=== PATIENT | female | born 1990 | race Caucasian/White ===

== ENCOUNTER 2018-04-13 11:24 | Outpatient (CLI) | payer BC | END 2018-04-13 11:25 | disposition home or self-care (01) | LOC: DTY/OP 11:24 | PROVIDERS: ATTEND Surgery | DX: E66.01 Morbid (severe) obesity due to excess calories (principal) | CPT/HCPCS: 97802 ==

== ENCOUNTER 2018-07-13 13:30 | Inpatient (IN) | payer BC ==
[2018-07-19] MEDS ORDERED: Levofloxacin 500 mg/D5W 100 ml Premix Bag ONE (06:26)
[2018-07-19] MEDS ORDERED: Scopolamine 1.5 mg/72 hour Patch ONE (06:26)
[2018-07-19] MEDS ORDERED: Bupivacaine/Epinephrine 0.25% 30 ML VIAL ONE (06:57)
[2018-07-19] MEDS ORDERED: Midazolam HCl 2 mg/2 ml Vial ONE (06:58)
[2018-07-19] MEDS ORDERED: HYDROmorphone 2 MG/ML VIAL ONE ×2 (07:03→09:20)
[2018-07-19] MEDS ORDERED: Fentanyl 100 MCG/2 ML VIAL ONE ×2 (07:03→12:02)
[2018-07-19] MEDS ORDERED: Promethazine HCl 25 MG/ML VIAL ONE (07:04)
[2018-07-19] MEDS ORDERED: Heparin 5,000 UNITS/ML VIAL ONE (07:17)
[2018-07-19] MEDS ORDERED: Hydrocodone-Acetamin 15 ML UDCUP PO PRN (08:42)
[2018-07-19] MEDS ORDERED: hydrALAZINE 20 MG/ML VIAL SLOW IVP PRN (08:42)
[2018-07-19] MEDS ORDERED: Dextrose 50% Abboject 50 ML SYRINGE SLOW IVP PRN (08:42)
[2018-07-19] MEDS ORDERED: Promethazine HCl 25 MG/ML VIAL IM PRN ×3 (08:42→10:31)
[2018-07-19] MEDS ORDERED: Dextrose 5% in Water 1,000 ML IV PRN (08:42)
[2018-07-19] MEDS ORDERED: diphenhydrAMINE 50 MG/ML VIAL IVP PRN ×2 (08:42→10:31)
[2018-07-19] MEDS ORDERED: Ondansetron HCl/PF 4 MG/2 ML Vial IVP PRN ×2 (08:42→08:51)
[2018-07-19] MEDS ORDERED: Promethazine HCl 25 MG/ML VIAL SLOW IVP PRN (08:51)
[2018-07-19] MEDS ORDERED: HYDROmorphone 2 MG/ML VIAL SLOW IVP PRN (08:51)
--- NOTE | 2018-07-19 08:58 | OP ---
PREOPERATIVE DIAGNOSIS: Morbid obesity. SURGEON: Darien Cherry M.D. PROCEDURE PERFORMED: Laparoscopic sleeve gastrectomy, esophagogastroscopy. INDICATIONS: This is a 27-year-old female, morbidly obese, who has attempted multiple weight loss pr ograms without success. FINDINGS: A 38 [place] bougie used. PROCEDURE IN DETAIL: After informed consent was obtained, the patient was taken to the operating devon m and given general endotracheal anesthesia placed in the supine position. The abdomen was prepped a nd draped in the usual fashion. Local anesthesia infiltrated subcutaneously and deep. A 12 mm incis ion was performed approximately 8 inches below the xiphoid slightly to the left. Veress needle inser néstor. Drop test performed. Pneumoperitoneum was created to a volume of 2 liters of carbon dioxide. Utilizing a bladeless 12 mm trocar and 0 degree laparoscope, direct visual entry in the abdominal cav ity was performed. Pneumoperitoneum was created to a pressure of 15 mmHg. The patient placed in a s teep reverse Trendelenburg position. Jolene liver retractor inserted. Left lobe of liver retract ed superiorly. Pylorus identified. A 12 mm port placed on the right beneath it and two 12s placed l eft subcostal. The omentum was taken off the greater curvature utilizing the LigaSure. Short gastri cs divided with LigaSure and the left crura defined with LigaSure. A 38-[place] bougie inserted, dire cted into the antrum. The linear 60 mm green load stapler used to divide the antrum to the bougie, g old load along the bougie and a series of blues through the angle of His. Intraoperative endoscopy w as performed. The video endoscope inserted under direct vision. Staple line inspected. There was n o bleeding. Staple line then tested by inflating the new stomach with pressurized air under water. There was no air leak. Stomach decompressed. Scope removed. The remnant stomach removed from the a bdomen through the left lateral port site. The fascia closed with 0 Vicryl suture and the GraNee nee dle. Trocars and retractors removed. Skin closed with interrupted 4-0 Rapide. Steri-Strips applied . Sterile bandage applied. The patient tolerated the procedure well and transferred to recovery in good condition. Sponge and needle count verified correct x2.
[2018-07-19] MEDS ORDERED: Enoxaparin Sodium 40 MG/0.4 ML SYRINGE SC SCH (09:00)
[2018-07-19] MEDS ORDERED: diphenhydrAMINE 25 MG CAP PO PRN (10:31)
[2018-07-19] MEDS ORDERED: Naloxone HCl 0.4 mg/ml Vial IV PRN (10:31)
[2018-07-19] MEDS ORDERED: Zolpidem Tartrate 5 MG TAB PO PRN (10:31)
[2018-07-19] MEDS ORDERED: diphenhydrAMINE 50 MG/ML VIAL IM PRN (10:31)
[2018-07-19] MEDS ORDERED: HYDROmorphone 10 mg/100 ml CADD IVPB PRN (10:31)
[2018-07-19] MEDS ORDERED: Communication Order-Pharmacy FS SCH (10:45)
[2018-07-19] MEDS: D5 1/2 NS w/20 mEq KCL 1,000 ML IV SCH ×2 (13:48→18:58)
[2018-07-19] MEDS: Pantoprazole 40 MG VIAL IVP SCH (14:56)
[2018-07-19 16:49] VITALS: BMI 59.2
[2018-07-19] MEDS: Ondansetron HCl/PF 4 MG/2 ML Vial IVP PRN (19:23)
[2018-07-20] MEDS: D5 1/2 NS w/20 mEq KCL 1,000 ML IV SCH ×2 (01:25→08:44)
[2018-07-20 06:03] LABS: #Lymphocytes 1.8 thou/uL (1.20-3.40); #Neutrophils 9.7 thou/uL (1.40-6.50); %Eosinophils 0.1 % (0.0-10.0); %Lymphocytes 14.3 % (21.0-51.0); %Monocytes 7.7 % (0.0-10.0); %Neutrophils 77.9 % (42.0-75.0); Hemoglobin 11.6 g/dL (12.0-16.0); Mean Corpuscular HGB CONC 32.5 g/dL (32.0-36.0); Mean Corpuscular Hemoglobin 27.7 pg (27.0-31.0); Mean Corpuscular Volume 85.2 fL (78.0-98.0); Mean Platelet Volume 8.3 fL (7.4-10.4); Platelet Count 270 thou/uL (130-400); RBC Distribution Width 13.2 % (11.5-14.5); Red Blood Cell (RBC) Count 4.17 mill/uL (4.20-5.40); White Blood Cell (WBC) Count 12.4 thou/uL (4.8-10.8)
[2018-07-20 06:14] LABS: Anion Gap 11 mmol/L (10-20); BUN (Urea Nitrogen) 9 mg/dL (7.0-18.7); Calc. Creatinine Clearance 328 mL/min (70-130); Calcium 8.5 mg/dL (7.8-10.44); Carbon Dioxide 25 mmol/L (22-29); Chloride 105 mmol/L (98-107); Estimated GFR-MDRD Greater than 90; Glucose 120 mg/dL (70-105); Potassium 3.5 mmol/L (3.5-5.1); Sodium 137 mmol/L (136-145)
[2018-07-20 08:33] VITALS: TEMP 97.9
[2018-07-20] MEDS: Pantoprazole 40 MG VIAL IVP SCH (08:44)
[2018-07-20] MEDS: Ondansetron HCl/PF 4 MG/2 ML Vial IVP PRN (08:44)
[2018-07-20] MEDS ORDERED: Enoxaparin Sodium 40 MG/0.4 ML SYRINGE SC SCH (09:00)
[2018-07-20] MEDS ORDERED: Hydrocodone-Acetamin 15 ML UDCUP PO PRN (10:17)
--- NOTE | 2018-07-20 10:59 | RAD ---
MODIFIED UPPER GI: INDICATIONS: Status post gastric sleeve procedure. CONTRAST: Oral Gastrografin, 15 mL. FLUOROSCOPIC TIME: 0.4 minutes. TOTAL EXPOSURE: 578.6 mGy per m2. FINDINGS: There is post procedural change of a gastric sleeve procedure. There is no evidence of leak or signi ficant obstruction. Contrast is seen flowing into the duodenum without difficulty. IMPRESSION: No evidence of leak or obstruction following gastric sleeve procedure. POS: TRACY
[2018-07-20 11:37] VITALS: BP 112/71
--- NOTE | 2018-07-20 17:44 | DIS ---
DISCHARGE DIAGNOSIS: Morbid obesity. PROCEDURES DURING ADMISSION: Laparoscopic sleeve gastrectomy, esophagogastroscopy, postoperative Gas trografin swallow. HOSPITAL COURSE: The patient was admitted, taken to the operating room where she underwent a sleeve gastrectomy. Postoperatively, she has done well. Her swallow study was fine. She is tolerating liq uids well. She is discharged home on hydrocodone and Zofran. She will follow up with me in 2 weeks.
== END 2018-07-20 14:50 | disposition home or self-care (01) | DRG 621 ==
LOC: SURG A 07-19 05:28 → SJJU 07-19 12:56
PROVIDERS: ADMIT Surgery; ATTEND Surgery
PROC: 0DB64Z3 Excision of Stomach, Percutaneous Endoscopic Approach, Vertical (ICD-10-PCS; principal; 2018-07-19)
DX: E66.01 Morbid (severe) obesity due to excess calories (principal); Z68.43 Body mass index [BMI] 50.0-59.9, adult; Z88.0 Allergy status to penicillin
CPT/HCPCS: 36415; 74241; 80048; 85025; 88307; 88312; 94760; C9113; J1170; J1644; J1650; J1956; J2250; J2405; J2550; J3010

== ENCOUNTER 2018-10-04 14:51 | Outpatient (CLI) | payer BC ==
[2018-10-04 16:19] LABS: #Basophils 0.1 thou/uL (0.0-0.2); #Eosinphils 0.1 thou/uL (0.0-0.7); #Lymphocytes 2.2 thou/uL (1.20-3.40); #Monocytes 0.6 thou/uL (0.11-0.59); #Neutrophils 8.4 thou/uL (1.40-6.50); %Basophils 0.7 % (0.0-1.0); %Eosinophils 0.7 % (0.0-10.0); %Lymphocytes 19.5 % (21.0-51.0); Mean Corpuscular HGB CONC 32.3 g/dL (32.0-36.0); Mean Corpuscular Hemoglobin 29.4 pg (27.0-31.0); Mean Platelet Volume 9.1 fL (7.4-10.4); Platelet Count 282 thou/uL (130-400); RBC Distribution Width 14.2 % (11.5-14.5); Red Blood Cell (RBC) Count 5.11 mill/uL (4.20-5.40); White Blood Cell (WBC) Count 11.3 thou/uL (4.8-10.8)
[2018-10-04 16:39] LABS: ALT (SGPT) 34 U/L (8-55); AST (SGOT) 19 U/L (5-34); Albumin 4.6 g/dL (3.5-5.0); Alkaline Phosphatase 83 U/L (40-150); Anion Gap 13 mmol/L (10-20); BUN (Urea Nitrogen) 25 mg/dL (7.0-18.7); Bilirubin, Direct 0.2 mg/dL (0.1-0.3); Bilirubin, Total 0.4 mg/dL (0.2-1.2); Calc. Creatinine Clearance 0 mL/min (70-130); Calcium 9.7 mg/dL (7.8-10.44); Carbon Dioxide 22 mmol/L (22-29); Cardiac Risk 3.4 (Less than 4.5); Chloride 109 mmol/L (98-107); Cholesterol 164 mg/dl (< 200 Desired); Estimated GFR-MDRD Greater than 90; Globulin 3.4 g/dL (2.4-3.5); Glucose 82 mg/dL (70-105); HDL Cholesterol 48 mg/dL (>60 Neg Risk); LDL Cholesterol, Calculated 99 mg/dL; Potassium 3.7 mmol/L (3.5-5.1); Sodium 140 mmol/L (136-145); Triglycerides 85 mg/dL (Less than 150)
[2018-10-04 16:49] LABS: BHCG - Serum Negative (NEGATIVE); Pregs Control Background? CLEAR/WHITE (CLR/WHITE); Pregs Control Bar Appear? YES (CONTROL BAR)
[2018-10-04 17:36] LABS: Folate (Folic Acid) 16.2 ng/mL (7.0-31.4)
== END 2018-10-04 14:52 | disposition home or self-care (01) ==
LOC: LABBT 14:51
PROVIDERS: ATTEND Surgery
DX: Z01.812 Encounter for preprocedural laboratory examination (principal); K43.9 Ventral hernia without obstruction or gangrene
CPT/HCPCS: 80053; 80061; 82248; 82306; 82607; 82746; 84425; 84443; 84703; 85025

== ENCOUNTER 2018-10-11 10:19 | Inpatient (IN) | payer BC ==
[2018-10-11] MEDS ORDERED: Midazolam HCl 2 mg/2 ml Vial ONE (11:37)
[2018-10-11] MEDS ORDERED: Fentanyl 100 MCG/2 ML VIAL ONE ×2 (11:37→13:36)
[2018-10-11] MEDS ORDERED: Famotidine/PF 20 mg/2ml Vial ONE (11:37)
[2018-10-11] MEDS ORDERED: Bupivacaine/Epinephrine 0.25% 30 ML VIAL ONE (11:39)
[2018-10-11] MEDS ORDERED: CEFAZOLIN 2 GM/50 ML BAG ONE (11:44)
[2018-10-11] MEDS ORDERED: Levofloxacin 500 mg/D5W 100 ml Premix Bag ONE (11:48)
[2018-10-11] MEDS ORDERED: Ondansetron PF 4 MG/2 ML Vial IVP PRN (13:26)
[2018-10-11] MEDS ORDERED: Promethazine HCl 25 MG/ML VIAL IM PRN (13:26)
[2018-10-11] MEDS ORDERED: Dextrose 5% in Water 1,000 ML IV PRN (13:26)
[2018-10-11] MEDS ORDERED: hydrALAZINE 20 MG/ML VIAL SLOW IVP PRN (13:26)
[2018-10-11] MEDS ORDERED: Dextrose 50% Abboject 50 ML SYRINGE SLOW IVP PRN (13:26)
[2018-10-11] MEDS ORDERED: HYDROcodone/Acetaminophen 10/325 mg Tablet PO PRN (13:26)
--- NOTE | 2018-10-11 13:47 | OP ---
PREOPERATIVE DIAGNOSIS: Ventral hernia. SURGEON: Darien Cherry M.D. PROCEDURE PERFORMED: Laparoscopic ventral hernia repair with mesh. INDICATIONS: A 28-year-old female with a painful bulge just above the umbilicus. FINDINGS: She had an epigastric hernia with a small defect containing preperitoneal fat. PROCEDURE IN DETAIL: After informed consent was obtained, the patient was taken to the operating devon m and given general endotracheal anesthesia. She was placed in the supine position. Her abdomen, fl anks were prepped and draped in usual fashion. Local anesthesia infiltrated subcutaneously and deep and a 12 mm incision was performed right flank. Veress needle inserted. Drop test performed. Pneum operitoneum was created to a volume of 2 liters of carbon dioxide. Utilizing a bladeless 12 mm troca r and 0 degree laparoscope, direct visual entry in the abdominal cavity was performed. Pneumoperiton eum was created to a pressure of 15 mmHg. Under direct vision, two 5-mm ports were placed in right l ateral abdomen. The abdominal wall was inspected. I did not see an obvious defect. Now, there was quite a bit of preperitoneal adipose as she is morbidly obese, in that midline. I did take down some of the falciform ligament to facilitate inspection. Then the peritoneum was opened and this preperi toneal adipose was dissected off the anterior abdominal wall. There was a small less than 1 cm defec t that was just above the umbilicus. I was able to remove adipose tissue from this area from her sub cutaneous tissue. The defect was very small, probably about 0.5 mm in diameter. After the area comp letely devoid of adipose, a mesh repair was performed. The abdominal pressure was decreased to 12 mm Hg. The 11 cm round [id number] Proceed mesh was fashioned with 0 Ethibond in 4 equal quadrants. It was rolled and inserted intra-abdominally after being hydrated. Then, it was unrolled intraabdominally a nd using the GraNee needle, each of the sutures was individually grasped to position the mesh optimal ly to cover the defect. These were then secured down and then the mesh was further secured to the ab dominal wall with the SecureStrap Tacker. Again, this was with abdominal pressure at 12. Hemostasis assured. A retrieval bag was inserted. The adipose tissue that was removed was placed in the bag a nd removed from the abdomen in the bag. Hemostasis was assured. Trocars and retractors removed. Th e fascia was closed with 0 Vicryl suture and the GraNee needle. Skin was then closed with interrupte d 4-0 Rapide and Dermabond applied. The patient tolerated the procedure well and was transferred to recovery in good condition. Sponge and needle count verified correct x2.
[2018-10-11] MEDS ORDERED: Ketorolac Tromethamine 30 MG/ML VIAL ONE (14:58)
[2018-10-11] MEDS ORDERED: Dexamethasone 20 MG/5 ML VIAL ONE (14:58)
[2018-10-11] MEDS ORDERED: PROPOFOL 200 MG/20 ML VIAL ONE (14:58)
[2018-10-11] MEDS ORDERED: Metoclopramide HCl 10 MG/2 ML VIAL ONE (14:58)
[2018-10-11] MEDS ORDERED: Ondansetron PF 4 MG/2 ML Vial ONE (14:58)
[2018-10-11] MEDS ORDERED: Lidocaine 1% PF 5 ML VIAL ONE (14:58)
[2018-10-11] MEDS ORDERED: Glycopyrrolate 0.2 MG/ML 5 ML SYRINGE ONE (14:58)
[2018-10-11 15:11] VITALS: BMI 48.4
[2018-10-11] MEDS: D5 1/2 NS w/20 mEq KCL 1,000 ML IV SCH ×2 (16:27→23:13)
[2018-10-11] MEDS: Ketorolac Tromethamine 30 MG/ML VIAL IVP SCH ×2 (18:25→23:12)
[2018-10-11] MEDS: Famotidine/PF 20 mg/2ml Vial SLOW IVP SCH (20:01)
[2018-10-11] MEDS: Famotidine 20 MG TAB PO SCH (20:05)
[2018-10-11] MEDS: HYDROcodone/Acetaminophen 10/325 mg Tablet PO PRN (21:11)
[2018-10-12] MEDS: Ketorolac Tromethamine 30 MG/ML VIAL IVP SCH ×2 (05:31→11:20)
[2018-10-12 05:34] LABS: #Lymphocytes 1.3 thou/uL (1.20-3.40); #Monocytes 0.8 thou/uL (0.11-0.59); #Neutrophils 7.8 thou/uL (1.40-6.50); %Basophils 0.3 % (0.0-1.0); %Eosinophils 0.2 % (0.0-10.0); %Lymphocytes 12.9 % (21.0-51.0); %Monocytes 7.9 % (0.0-10.0); %Neutrophils 78.7 % (42.0-75.0); Hemoglobin 11.7 g/dL (12.0-16.0); Mean Corpuscular HGB CONC 31.7 g/dL (32.0-36.0); Mean Corpuscular Hemoglobin 28.7 pg (27.0-31.0); Mean Corpuscular Volume 90.6 fL (78.0-98.0); Mean Platelet Volume 9.5 fL (7.4-10.4); Platelet Count 237 thou/uL (130-400); RBC Distribution Width 14.1 % (11.5-14.5); Red Blood Cell (RBC) Count 4.08 mill/uL (4.20-5.40); White Blood Cell (WBC) Count 9.9 thou/uL (4.8-10.8)
[2018-10-12] MEDS: HYDROcodone/Acetaminophen 10/325 mg Tablet PO PRN ×3 (05:34→15:10)
[2018-10-12 05:43] LABS: Anion Gap 7 mmol/L (10-20); BUN (Urea Nitrogen) 11 mg/dL (7.0-18.7); Calc. Creatinine Clearance 283 mL/min (70-130); Calcium 9.3 mg/dL (7.8-10.44); Carbon Dioxide 24 mmol/L (22-29); Chloride 109 mmol/L (98-107); Estimated GFR-MDRD Greater than 90; Glucose 149 mg/dL (70-105); Potassium 4.3 mmol/L (3.5-5.1); Sodium 136 mmol/L (136-145)
[2018-10-12] MEDS: Famotidine 20 MG TAB PO SCH (08:45)
[2018-10-12] MEDS: Famotidine/PF 20 mg/2ml Vial SLOW IVP SCH (08:49)
[2018-10-12] MEDS ORDERED: Enoxaparin Sodium 40 MG/0.4 ML SYRINGE SC SCH (09:00)
[2018-10-12] MEDS ORDERED: Levofloxacin 500 mg/D5W 100 ml Premix Bag IVPB SCH (12:00)
[2018-10-12] MEDS: D5 1/2 NS w/20 mEq KCL 1,000 ML IV SCH ×2 (14:59→15:56)
[2018-10-12 15:53] VITALS: BP 131/81; TEMP 98.1
--- NOTE | 2018-10-12 19:56 | DIS ---
DISCHARGE DIAGNOSIS: Ventral hernia. PROCEDURES DURING ADMISSION: Laparoscopic ventral hernia repair with mesh. HOSPITAL COURSE: The patient was admitted, taken to the operating room where she underwent a laparos copic ventral hernia repair with mesh. Postoperatively, she has done well. Initially, she had quite a bit of pain, is now well controlled. She is discharged home tolerating diet, pain controlled on p .o. medications. Follow up with me in 2 weeks.
== END 2018-10-12 16:58 | disposition home or self-care (01) | DRG 354 ==
LOC: SDC 10:19 → SURG A 13:26
PROVIDERS: ADMIT Surgery; ATTEND Surgery
PROC: 0WUF4JZ Supplement Abdominal Wall with Synthetic Substitute, Percutaneous Endoscopic Approach (ICD-10-PCS; principal; 2018-10-11)
PROC: 0JB83ZX Excision of Abdomen Subcutaneous Tissue and Fascia, Percutaneous Approach, Diagnostic (ICD-10-PCS; 2018-10-11)
DX: K43.9 Ventral hernia without obstruction or gangrene (principal); Z68.42 Body mass index [BMI] 45.0-49.9, adult; E66.01 Morbid (severe) obesity due to excess calories; Z79.899 Other long term (current) drug therapy; K21.9 Gastro-esophageal reflux disease without esophagitis; K58.9 Irritable bowel syndrome, unspecified; J45.909 Unspecified asthma, uncomplicated; M54.9 Dorsalgia, unspecified; Z93.1 Gastrostomy status
CPT/HCPCS: 36415; 80048; 85025; 96374; C1781; J0131; J1100; J1650; J1885; J1956; J2001; J2250; J2405; J2704; J2765; J3010; S0028